=== PATIENT | female | born 1960 | race Caucasian/White ===

== ENCOUNTER 2019-03-22 13:32 | Emergency (ER) | payer OTHER ==
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
[2019-03-22] MEDS ORDERED: HYDROcodone 10MG/APAP 325MG 1 EA TAB PO ONE (13:51)
[2019-03-22] MEDS ORDERED: TETANUS,DIPHTHERIA,PERTUSSIS 1 EA SYG IM ONE (13:51)
[2019-03-22 13:55] VITALS: O2SAT 97
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
[2019-03-22] MEDS ORDERED: NEOMYCIN-BACITRACIN-POLYMYXIN 0.9 GM UD TOP ONE (15:12)
[2019-03-22 15:48] VITALS: BP 114/73; TEMP 96.9
== END 2019-03-22 15:15 | disposition home or self-care (01) ==
LOC: ER 13:32
DX: S80.812A Abrasion, left lower leg, initial encounter (principal); S80.811A Abrasion, right lower leg, initial encounter; V49.59XA Passenger injured in collision with other motor vehicles in traffic accident, initial encounter; Y92.410 Unspecified street and highway as the place of occurrence of the external cause; I10 Essential (primary) hypertension